=== PATIENT | male | born 2000 ===

== ENCOUNTER 2020-01-08 15:04 | Outpatient (CLI) | payer MEDICAID | END 2020-01-08 15:05 | disposition EMS.NT | LOC: EMS 15:04 | PROVIDERS: ATTEND Surgery | DX: T75.1XXA Unspecified effects of drowning and nonfatal submersion, initial encounter (principal); V90.0 Drowning and submersion due to watercraft overturning; Y92.832 Beach as the place of occurrence of the external cause ==